=== PATIENT | female | born 2000 | race Caucasian/White ===

== ENCOUNTER 2024-02-04 15:17 | Emergency (ER) | payer SELFPAY ==
[2024-02-04 15:29] VITALS: BP 139/98
[2024-02-04] MEDS: NORCO 5/325 1 TABLET PO (16:53)
--- NOTE | 2024-02-04 20:41 | ED.MUSCINJ ---
HPI-Injury
General
Chief Complaint: Musculo-Skeletal Complaint
Source: patient
Exam Limitations: none
Time Seen by Provider: 02/04/24 16:29
Nursing documentation reviewed up to this point in time: agreed with
Travel History
Have you had any contact with someone who has COVID-19?: No
Do you have any symptoms of coronavirus? Fever > 100 degrees, chills, cough, shortness of breath, sore throat, loss of taste or smell, muscle aches, or headache?: No
History of Present Illness-Injury
Is this injury a work related problem?: Yes
Is pt an associate of [facility]?: No
Initial Injury comments:
Patient states her ankle was stepped on by donkey while she was working with it. COmplains of pain to left ankle. Injury occurred jsut [employer]
Past History
Past History
ED Past Medical History: None
ED Past Surgical History: None
Review of Systems
Review of Systems
Allergies reviewed?: Yes
All Other Systems: ROS reviewed and negative except as documented in HPI and ROS
Constitutional: Reports no symptoms
Musculoskeletal: Reports joint pain (leftankle pain)
Skin: Reports no symptoms
Neurological: Reports no symptoms
Psychiatric: Reports no symptoms
Musculoskeletal Injury Exam
Musculoskeletal Injury Exam
Left Ankle:
Pain with Movement?: Moderate
Tender to palpation?: Moderate
Soft tissue swelling?: Moderate
External deformity and angulation?: Mild
Joint effusion?: None
Contusion?: Moderate
Hematoma-local bleeding into tissue?: Moderate
Strain- Sprain- Tear (Connective tissue injury)?: Moderate
Crepitus with movement?: No
Joint instability?: No
Malalignment/deformity?: No
Range of motion: Limited
Distal skin color and temperature: normal-warm & good color
Capillary Refill: normal
Normal distal neurovascular exam?: Yes
Peripheral Pulses: posterior tibial (left): 3+ and dorsalis pedis (left): 3+
Phy Exam
General Physical Exam
General Presentation: well appearing and mild distress
General age: appears stated age
General Skin: warm and dry
General Habitus: normal
Musculoskeletal Exam
Musculoskeletal Exam: neuro vasc intact (achilles intact, no tenderness base of 5th ,proximal tib/foib)
Skin Exam
Skin Exam: normal color, warm/dry and no rash
Psychiatric Exam
Psychiatric Exam: normal mood/affect
Injury Course
Orders/Labs/Results
Orders:
Orders
02/04/24 15:28
Ankle, left 3 view CR [CR Ankle - Left Min 3 Views ] Urgent
Comment:
Reason For Exam: injury
02/04/24 16:35
Stirrup Splint Left-Treatment ONCE
02/04/24 16:36
Crutches-Treatment ONCE
Long Leg Posterior Left-Treatm ONCE
02/04/24 16:47
Hydrocodone 5/APAP 325 [[place] 5/325] 1 tablet PO NOW STA
02/04/24 16:59
CT Lower Ext W/o Iv Cont Lt Urgent
Comment:
Reason For Exam: trimalleolar fx, ortho request
*Radiology
Radiology exam reviewed: preliminary read by ED provider
*Pulse Oximetry
Patient hypoxic: no
*Critical Care Note
Total Time (30-74mins, 75-104mins- exclusive of procedures): Not Applicable
Update Note
Update Note:
Dr. Diana notified of injury, xxrays sent via tiger text. He will follow up with patient in office. Requested CT of ankle which was completed. Patient placed in splint and discharged home on crutches. She will follow upw ith dr. diana in AM
ED Attending Note
-
Portions of this chart may have been created with voice recognition software.� Occasional wrong word or��sound alike� substitutions may have occurred due to the inherent limitations of voice recognition software.
Discharge Plan
Departure
Patient Disposition: Home (Routine Discharge)
Date of Disposition: 02/04/24
Time of Disposition: 18:31
Patient with high blood pressure during this ER visit?: No
Condition: Good
Covid-19: Not Applicable
Discharge Problem:
Ankle fracture
Instructions: How to Use Crutches, Ankle Fracture (DC), Ibuprofen, Using Cold for Pain, Splint Care
Prescriptions:
New
ibuprofen 600 mg tablet
600 mg PO Q6H PRN (Reason: Pain) Qty: 30 0RF
Referrals:
Rigoberto Diana, DO [Active] - Tomorrow
UNKNOWN - PT DOES,NOT KNOW [Family Provider] -
Interventions
Interventions:
*Risk Screen - Suicide Last Done: 02/04/24 15:29
*General Assessment Last Done: 02/04/24 15:29
*Neglect/Abuse Screening Last Done: 02/04/24 15:29
ED- Fall Risk Assessment Last Done: 02/04/24 19:13
*ED COVID-19 Vaccine History Last Done: 02/04/24 15:29
*Nursing Disposition Last Done: 02/04/24 19:13
ED-Musculoskeletal Assessment Last Done: 02/04/24 16:43
Discharge Date and Time
Discharge Date/Time: 02/04/24 19:13
Print Language: KENYAN
== END 2024-02-04 19:13 | disposition home or self-care (01) ==
LOC: EMR 15:17
PROVIDERS: EMERGENCY PHYSICIAN Emergency Medicine
DX: S82.852A Displaced trimalleolar fracture of left lower leg, initial encounter for closed fracture (principal); W55.39XA Other contact with other hoof stock, initial encounter; Y99.0 Civilian activity done for income or pay
CPT/HCPCS: 99284; 29515; 73610; 73700

== ENCOUNTER → 2024-02-18 06:22 | Day surgery (SDC) | payer OTHER, SELFPAY ==
[2024-02-12 12:47] VITALS: BMI 23.5
[2024-02-12 13:45] LABS: % Basophils 0.1 % (0-2); % Eosinophils 0.7 % (0-6); % Immature Granulocytes 0.4 % (0-0.5); % Lymphocytes 22.5 % (20.5-51.1); % Monocytes 8.6 % (1.7-9.3); % Neutrophils 67.7 % (42.2-75.2); Absolute Eosinophils 0.1 10^3/uL (0-0.7); Absolute Lymphocytes 1.7 10^3/uL (1.2-3.4); Absolute Monocytes 0.7 10^3/uL (0.1-0.6); Absolute Neutrophils 5.1 10^3/uL (1.4-6.5); Hematocrit 35.2 % (37.0-47.0); Hemoglobin 11.5 g/dL (12.0-16.0); Mean Corp Hgb Conc. 32.7 g/dL (33.0-37.0); Mean Corpuscular Hgb 29.8 pg (27.0-31.0); Mean Corpuscular Volume 91.2 fL (81.0-99.0); Mean Platelet Volume 11.3 fL (7.4-10.4); Nucleated Red Blood Cells % 0 %; Platelet Count 247 10^3/uL (130-400); Red Blood Cell Count 3.86 10^6/uL (4.20-5.40); Red Cell Dist. Width 11.9 % (11.5-14.5); White Blood Cell Count 7.6 10^3/uL (4.8-10.8)
[2024-02-12 14:01] LABS: Blood Urea Nitrogen 13 mg/dl (7-17); Calcium 9.6 mg/dl (8.4-10.2); Carbon Dioxide 23 mmol/L (22-30); Chloride 103 mmol/L (98-107); Estimated Creatinine Clearance 125 ml/min; Glucose 79 mg/dl (70-99); Potassium 3.9 mmol/L (3.5-5.1); Sodium 136 mmol/L (135-145); eGFR > 60.00
[2024-02-18] VITALS (12 sets, daily range): BP systolic 94–139; BP diastolic 39–79; BMI 23.5
[2024-02-18] MEDS: TYLENOL 1000 MG PO (15:24)
[2024-02-18] MEDS: CELEBREX 200 MG PO (15:24)
[2024-02-18] MEDS: NORMOSOL-R 1000 IV (15:49)
[2024-02-18] MEDS: DILAUDID 0.5 MG IV ×2 (19:19→19:30)
[2024-02-18] MEDS: DEMEROL 12.5 MG IV ×2 (19:50→20:11)
[2024-02-18] MEDS: ROXICODONE 5 MG PO (21:02)
== END | disposition home or self-care (01) ==
LOC: SDS 06:22
PROVIDERS: ATTENDING PHYSICIAN Student in an Organized Health Care Education/Training Program
DX: S82.832A Other fracture of upper and lower end of left fibula, initial encounter for closed fracture (principal); S82.55XA Nondisplaced fracture of medial malleolus of left tibia, initial encounter for closed fracture; X50.1XXA Overexertion from prolonged static or awkward postures, initial encounter
CPT/HCPCS: 27828; 27829; 36415; 73610; 76000; 80048; 85025; 93005; C1713; C1769